=== PATIENT | female | born 1970 | race African-American/Black ===

== ENCOUNTER 2021-08-12 22:28 | Emergency (ER) | payer BC, OTHER ==
[~2021-08-12] VITALS: Ht 154.9 cm; Wt 122.5 kg
[2021-08-12] MEDS ORDERED: HYDROCHLOROTHIA25 M1 PO (22:46)
[2021-08-12] MEDS ORDERED: LOSARTAN-HCTZ1 EAC3 PO (22:47)
[2021-08-12] MEDS ORDERED: NORVASC5 MG PO (22:47)
[2021-08-12] MEDS ORDERED: LIPITOR10 MG PO (22:47)
[2021-08-12] MEDS ORDERED: MELOXICAM7.5 MG PO (22:47)
[2021-08-12] MEDS ORDERED: DULOXETINE HCL30 MG PO (22:47)
[2021-08-12] MEDS ORDERED: METFORMIN HCL500 M3 PO (22:48)
[2021-08-12] MEDS ORDERED: HYDROCODON-ACE1 EAC7 PO (23:50)
[2021-08-13 00:05] VITALS: BP 150/74
== END 2021-08-13 00:06 | disposition home or self-care (01) ==
LOC: ER 22:28
DX: S63.273A Dislocation of unspecified interphalangeal joint of left middle finger, initial encounter (principal); I10 Essential (primary) hypertension; E11.9 Type 2 diabetes mellitus without complications; E78.00 Pure hypercholesterolemia, unspecified; Z98.890 Other specified postprocedural states; Z90.89 Acquired absence of other organs; Z79.84 Long term (current) use of oral hypoglycemic drugs; Z79.891 Long term (current) use of opiate analgesic; Z79.1 Long term (current) use of non-steroidal anti-inflammatories (NSAID); Z79.899 Other long term (current) drug therapy; Y04.0XXA Assault by unarmed brawl or fight, initial encounter; Y93.89 Activity, other specified; Y92.89 Other specified places as the place of occurrence of the external cause; Y99.8 Other external cause status